=== PATIENT | female | born 1960 | race Caucasian/White ===

== ENCOUNTER 2021-09-17 12:22 | Outpatient (CLI) | payer OTHER | END 2021-09-17 12:23 | disposition home or self-care (01) | LOC: BICMAMMO 12:22 | PROVIDERS: ATTEND Registered Nurse | DX: Z12.31 Encounter for screening mammogram for malignant neoplasm of breast (principal); Z12.2 Encounter for screening for malignant neoplasm of respiratory organs; F17.210 Nicotine dependence, cigarettes, uncomplicated; J84.10 Pulmonary fibrosis, unspecified; I25.10 Atherosclerotic heart disease of native coronary artery without angina pectoris; J92.9 Pleural plaque without asbestos | CPT/HCPCS: 71271; 77063; 77067 ==

== ENCOUNTER 2022-07-10 09:41 | Inpatient (IN) | payer OTHER ==
[2022-07-10] MEDS ORDERED: Ketorolac Tromethamine 30 MG/ML VIAL ONE (11:19)
[2022-07-10] MEDS ORDERED: Metoclopramide HCl 10 MG TAB PO SCH (11:45)
[2022-07-10] MEDS ORDERED: Metoclopramide HCl 10 MG TAB ONE (11:59)
[2022-07-10 12:23] LABS: #Basophils 0.1 thou/uL (0.0-0.2); #Lymphocytes 0.7 thou/uL (1.20-3.40); #Monocytes 0.5 thou/uL (0.11-0.59); #Neutrophils 6.3 thou/uL (1.40-6.50); %Basophils 0.7 % (0.0-1.0); %Eosinophils 0.2 % (0.0-10.0); %Lymphocytes 9.1 % (21.0-51.0); %Monocytes 6.8 % (0.0-10.0); %Neutrophils 83.2 % (42.0-75.0); Mean Corpuscular HGB CONC 35.3 g/dL (32.0-36.0); Mean Corpuscular Hemoglobin 31.5 pg (27.0-31.0); Mean Corpuscular Volume 89.3 fl (78.0-98.0); Mean Platelet Volume 5.9 fL (7.4-10.4); Platelet Count 248 10x3/uL (130-400); RBC Distribution Width 11.8 % (11.5-14.5); Red Blood Cell (RBC) Count 4.13 mill/uL (4.20-5.40); White Blood Cell (WBC) Count 7.5 10x3/uL (4.8-10.8)
[2022-07-10 12:43] LABS: ALT (SGPT) 36 U/L (8-55); AST (SGOT) 58 U/L (5-34); Albumin 4.2 g/dL (3.5-5.0); Alkaline Phosphatase 98 U/L (40-110); Anion Gap 11 mmol/L (10-20); BUN (Urea Nitrogen) 4 mg/dL (9.8-20.1); Bilirubin, Total 0.5 mg/dL (0.2-1.2); Calc. Creatinine Clearance 0 mL/min (70-130); Calcium 8.7 mg/dL (7.8-10.44); Carbon Dioxide 25 mmol/L (22-29); Chloride 80 mmol/L (98-107); Estimated GFR 103; Globulin 2.5 g/dL (2.4-3.5); Glucose 97 mg/dL (70-105); Lipase 7 U/L (8-78); Potassium 4.1 mmol/L (3.5-5.1); Protein, Total 6.7 g/dL (6.0-8.3)
[2022-07-10 12:50] LABS: Sodium 112 mmol/L (136-145)
[2022-07-10 14:03] LABS: Anion Gap 15 mmol/L (10-20); BUN (Urea Nitrogen) 5 mg/dL (9.8-20.1); Calc. Creatinine Clearance 0 mL/min (70-130); Calcium 8.5 mg/dL (7.8-10.44); Carbon Dioxide 23 mmol/L (22-29); Chloride 79 mmol/L (98-107); Estimated GFR 103; Glucose 92 mg/dL (70-105); Potassium 4.2 mmol/L (3.5-5.1)
[2022-07-10 14:09] LABS: Sodium 113 mmol/L (136-145)
[2022-07-10 14:54] LABS: Magnesium 1.4 mg/dL (1.6-2.6)
[2022-07-10] MEDS ORDERED: Ondansetron PF 4 MG/2 ML Vial IVP PRN (15:15)
[2022-07-10] MEDS ORDERED: Sodium Chloride 0.9% 1,000 ML IV SCH (15:15)
[2022-07-10] MEDS ORDERED: Acetaminophen 325 MG TAB PO PRN (15:15)
[2022-07-10] MEDS ORDERED: Ondansetron ODT 4 MG TAB SL PRN (15:15)
[2022-07-10] MEDS ORDERED: HYDROcodone/Acetaminophen 5/325 mg Tablet PO PRN (15:28)
[2022-07-10] MEDS ORDERED: Guaifenesin DM 100-10/5 ML UDCUP PO PRN (15:28)
[2022-07-10] MEDS ORDERED: Magnesium Sulfate In Water 4 GM in Premix Bag 1 BAG IVPB SCH ×2 (15:45→20:00)
[2022-07-10 15:54] LABS: Anion Gap 12 mmol/L (10-20); BUN (Urea Nitrogen) 4 mg/dL (9.8-20.1); Calc. Creatinine Clearance 0 mL/min (70-130); Calcium 8.1 mg/dL (7.8-10.44); Carbon Dioxide 23 mmol/L (22-29); Chloride 89 mmol/L (98-107); Estimated GFR 104; Glucose 95 mg/dL (70-105); Sodium 120 mmol/L (136-145)
[2022-07-10] MEDS ORDERED: Dextrose 5% in Water 1,000 ML IV SCH ×2 (16:45→22:45)
[2022-07-10 16:49] LABS: Sodium 120 mmol/L (136-145)
[2022-07-10] MEDS ORDERED: Electrolyte Replacement Protocol 1 EACH FS SCH (19:45)
[2022-07-10 20:18] VITALS: BMI 25.1
[2022-07-10] MEDS ORDERED: buPROPion 75 MG TAB PO SCH (21:00)
[2022-07-10] MEDS ORDERED: Albuterol 200 PUFF (6.7GM INHALER) INH PRN (21:23)
[2022-07-10] MEDS: Famotidine 20 MG TAB PO SCH (21:38)
[2022-07-10] MEDS: Bupropion 150 MG SR TAB PO SCH (21:38)
[2022-07-10 22:16] LABS: Anion Gap 11 mmol/L (10-20); BUN (Urea Nitrogen) 5 mg/dL (9.8-20.1); Calc. Creatinine Clearance 101 mL/min (70-130); Calcium 8.6 mg/dL (7.8-10.44); Carbon Dioxide 25 mmol/L (22-29); Chloride 91 mmol/L (98-107); Estimated GFR 101; Glucose 129 mg/dL (70-105); Potassium 3.2 mmol/L (3.5-5.1); Sodium 124 mmol/L (136-145)
[2022-07-10] MEDS ORDERED: Potassium Chloride 20 MEQ TAB PO SCH (23:00)
[2022-07-11 02:11] LABS: Sodium 126 mmol/L (136-145)
[2022-07-11 04:37] LABS: #Lymphocytes 0.7 thou/uL (1.20-3.40); #Monocytes 0.6 thou/uL (0.11-0.59); #Neutrophils 4.8 thou/uL (1.40-6.50); %Basophils 0.3 % (0.0-1.0); %Eosinophils 0.5 % (0.0-10.0); %Lymphocytes 12.1 % (21.0-51.0); %Monocytes 9.4 % (0.0-10.0); %Neutrophils 77.7 % (42.0-75.0); Hemoglobin 12.1 g/dL (12.0-16.0); Mean Corpuscular HGB CONC 36.2 g/dL (32.0-36.0); Mean Corpuscular Hemoglobin 32.8 pg (27.0-31.0); Mean Corpuscular Volume 90.8 fl (78.0-98.0); Mean Platelet Volume 6.2 fL (7.4-10.4); Platelet Count 246 10x3/uL (130-400); RBC Distribution Width 11.8 % (11.5-14.5); Red Blood Cell (RBC) Count 3.67 mill/uL (4.20-5.40); White Blood Cell (WBC) Count 6.1 10x3/uL (4.8-10.8)
[2022-07-11] MEDS ORDERED: Dextrose 5% in Water 1,000 ML IV SCH (04:45)
[2022-07-11 05:04] LABS: Anion Gap 14 mmol/L (10-20); BUN (Urea Nitrogen) 7 mg/dL (9.8-20.1); Calc. Creatinine Clearance 108 mL/min (70-130); Calcium 8.1 mg/dL (7.8-10.44); Carbon Dioxide 23 mmol/L (22-29); Chloride 95 mmol/L (98-107); Estimated GFR 103; Glucose 119 mg/dL (70-105); Potassium 4.2 mmol/L (3.5-5.1); Sodium 128 mmol/L (136-145)
[2022-07-11] MEDS: Levothyroxine 150 MCG TAB PO SCH (06:09)
[2022-07-11] MEDS: Dextrose 5% in Water 1,000 ML IV SCH ×2 (07:54→23:51)
[2022-07-11] MEDS: Famotidine 20 MG TAB PO SCH ×2 (09:38→20:54)
[2022-07-11] MEDS: Nicotine 21 MG PATCH TD SCH (09:38)
[2022-07-11] MEDS: Lisinopril 20 MG TAB PO SCH (09:39)
[2022-07-11] MEDS: Bupropion 150 MG SR TAB PO SCH ×2 (09:41→20:59)
[2022-07-11 10:17] LABS: Sodium 125 mmol/L (136-145)
[2022-07-11] MEDS: Ipratropium/Albuterol 3 ML NEB NEB PRN ×2 (11:15→18:38)
[2022-07-11 12:46] LABS: Sodium 126 mmol/L (136-145)
[2022-07-11] MEDS ORDERED: Mometasone 200 MCG/Formoterol 5 MCG 120 PUFF INHALER INH SCH (18:30)
[2022-07-11 19:41] LABS: Anion Gap 12 mmol/L (10-20); BUN (Urea Nitrogen) 5 mg/dL (9.8-20.1); Calc. Creatinine Clearance 97 mL/min (70-130); Calcium 8.6 mg/dL (7.8-10.44); Carbon Dioxide 22 mmol/L (22-29); Chloride 96 mmol/L (98-107); Estimated GFR 100; Glucose 119 mg/dL (70-105); Potassium 4.1 mmol/L (3.5-5.1); Sodium 126 mmol/L (136-145)
[2022-07-11] MEDS ORDERED: Magnesium 2 GM/50 ML(in water) 2 GM in Premix Bag 1 BAG IVPB SCH (21:00)
[2022-07-12] MEDS: Levothyroxine 150 MCG TAB PO SCH (05:12)
[2022-07-12 08:01] VITALS: BP 119/70; TEMP 97.7
[2022-07-12] MEDS: Lisinopril 20 MG TAB PO SCH (08:49)
[2022-07-12] MEDS: Famotidine 20 MG TAB PO SCH (08:49)
[2022-07-12] MEDS: Nicotine 21 MG PATCH TD SCH (08:49)
[2022-07-12] MEDS: Bupropion 150 MG SR TAB PO SCH (08:49)
== END 2022-07-12 09:58 | disposition home or self-care (01) | DRG 645 ==
LOC: ERS 09:41 → CCU 18:19 → 2SW 07-11 23:47
PROVIDERS: ADMIT Hospitalist; ATTEND Internal Medicine
DX: E22.2 Syndrome of inappropriate secretion of antidiuretic hormone (principal); G43.909 Migraine, unspecified, not intractable, without status migrainosus; E03.9 Hypothyroidism, unspecified; I12.9 Hypertensive chronic kidney disease with stage 1 through stage 4 chronic kidney disease, or unspecified chronic kidney disease; N18.1 Chronic kidney disease, stage 1; D63.1 Anemia in chronic kidney disease; E83.42 Hypomagnesemia; J44.9 Chronic obstructive pulmonary disease, unspecified; F17.218 Nicotine dependence, cigarettes, with other nicotine-induced disorders; Z88.0 Allergy status to penicillin; Z79.51 Long term (current) use of inhaled steroids; Z90.49 Acquired absence of other specified parts of digestive tract; Z79.899 Other long term (current) drug therapy; Z79.890 Hormone replacement therapy
CPT/HCPCS: 36415; 70450; 70551; 71045; 80048; 80053; 83690; 83735; 84443; 85025; 94640; J1650; J1885; J3475; J7070; J7620

== ENCOUNTER 2024-02-18 08:57 | Inpatient (IN) | payer BC ==
[2024-02-18] MEDS ORDERED: Ipratropium/Albuterol 3 ML NEB NEB PRN (13:00)
[2024-02-18] MEDS ORDERED: Acetaminophen 500 MG TAB PO PRN (22:31)
[2024-02-18] MEDS ORDERED: Promethazine 25 MG TAB PO PRN (22:31)
[2024-02-18] MEDS ORDERED: Benzonatate 100 MG CAP PO PRN (22:32)
[2024-02-18] MEDS ORDERED: cloNIDine 0.1 MG TAB PO PRN (22:32)
[2024-02-18] MEDS ORDERED: Bisacodyl 5 MG TAB PO PRN (22:33)
[2024-02-19] MEDS: Sodium Chloride 3% 100 ML IVPB SCH (00:15)
[2024-02-19] MEDS: Nicotine 21 MG PATCH TOP SCH (00:16)
[2024-02-19] MEDS: methylPREDNISolone Sod Succ 40 MG VIAL IVP SCH (00:16)
[2024-02-19] MEDS: Ipratropium/Albuterol 3 ML NEB NEB SCH ×2 (00:16→07:28)
[2024-02-19 01:10] LABS: Anion Gap 14 mmol/L (10-20); BUN (Urea Nitrogen) 7 mg/dL (9.8-20.1); Calc. Creatinine Clearance 125 mL/min (70-130); Calcium 8.2 mg/dL (7.8-10.44); Carbon Dioxide 24 mmol/L (23-31); Chloride 90 mmol/L (98-107); Estimated GFR 102; Glucose 116 mg/dL (80-115); Potassium 3.9 mmol/L (3.5-5.1); Sodium 124 mmol/L (136-145)
[2024-02-19 05:24] LABS: Legionella Urinary Ag Negative (Negative)
[2024-02-19 05:42] LABS: Anion Gap 13 mmol/L (10-20); BUN (Urea Nitrogen) 7 mg/dL (9.8-20.1); Calc. Creatinine Clearance 130 mL/min (70-130); Carbon Dioxide 26 mmol/L (23-31); Chloride 95 mmol/L (98-107); Estimated GFR 102; Glucose 101 mg/dL (80-115); Potassium 3.6 mmol/L (3.5-5.1); Sodium 130 mmol/L (136-145)
[2024-02-19] MEDS: Mometasone 200 MCG/Formoterol 5 MCG 120 PUFF INHALER INH SCH (07:31)
[2024-02-19 08:58] LABS: Anion Gap 13 mmol/L (10-20); BUN (Urea Nitrogen) 7 mg/dL (9.8-20.1); Calc. Creatinine Clearance 120 mL/min (70-130); Calcium 8.6 mg/dL (7.8-10.44); Carbon Dioxide 24 mmol/L (23-31); Chloride 97 mmol/L (98-107); Estimated GFR 101; Glucose 107 mg/dL (80-115); Potassium 3.9 mmol/L (3.5-5.1); Sodium 130 mmol/L (136-145)
[2024-02-19] MEDS: Enoxaparin 40 MG (0.4 mL) SYRINGE SC SCH (09:13)
[2024-02-19] MEDS: Azithromycin 500 MG in Sodium Chloride 0.9% 250 ML 250 ML IVPB SCH (09:13)
[2024-02-19] MEDS: cefTRIAXone\\ROCEPHIN 1 GM in Sodium Chloride 0.9% 100 ML IVPB SCH (09:13)
[2024-02-19 11:22] LABS: ALT (SGPT) 25 U/L (8-55); AST (SGOT) 23 U/L (5-34); Albumin 3.6 g/dL (3.4-4.8); Alkaline Phosphatase 103 U/L (40-110); Anion Gap 15 mmol/L (10-20); BUN (Urea Nitrogen) 7 mg/dL (9.8-20.1); Bilirubin, Total 0.5 mg/dL (0.2-1.2); Calc. Creatinine Clearance 128 mL/min (70-130); Calcium 8.1 mg/dL (7.8-10.44); Carbon Dioxide 22 mmol/L (23-31); Chloride 83 mmol/L (98-107); Estimated GFR 102; Globulin 2.9 g/dL (2.4-3.5); Glucose 111 mg/dL (80-115); Potassium 3.6 mmol/L (3.5-5.1); Protein, Total 6.5 g/dL (5.8-8.1); Sodium 116 mmol/L (136-145)
[2024-02-19 11:25] LABS: Troponin I Less than 0.010 ng/mL (< 0.028)
[2024-02-19 11:26] LABS: Lactic Acid 1.09 mmol/L (0.5-2.2)
[2024-02-19 14:25] LABS: #Basophils Less than 0.03 10x3/uL (0.0-0.2); #Eosinophils Less than 0.03 10x3/uL (0.0-0.7); %Basophils 0.3 % (0.0-1.0); %Eosinophils 0.3 % (0.0-10.0); %Lymphocytes 17.3 % (21.0-51.0); %Monocytes 10.7 % (0.0-10.0); %Neutrophils 70.9 % (42.0-75.0); Hematocrit 35.3 % (36.0-47.0); Hemoglobin 13.1 g/dL (12.0-16.0); Mean Corpuscular HGB CONC 37.1 g/dL (32.0-36.0); Mean Corpuscular Hemoglobin 30.5 pg (27.0-31.0); Mean Corpuscular Volume 82.3 fL (78.0-98.0); Mean Platelet Volume 8.6 fL (7.4-10.4); Platelet Count 242 10x3/uL (130-400); RBC Distribution Width 12.1 % (11.5-14.5); Red Blood Cell (RBC) Count 4.29 mill/uL (4.20-5.40)
[2024-02-19 16:54] LABS: Anion Gap 15 mmol/L (10-20); BUN (Urea Nitrogen) 9 mg/dL (9.8-20.1); Calc. Creatinine Clearance 105 mL/min (70-130); Calcium 8.2 mg/dL (7.8-10.44); Carbon Dioxide 22 mmol/L (23-31); Chloride 98 mmol/L (98-107); Estimated GFR 95; Glucose 147 mg/dL (80-115); Potassium 3.7 mmol/L (3.5-5.1); Sodium 131 mmol/L (136-145)
[2024-02-19] MEDS: Desmopressin Acetate 4 mcg/ml AMPUL IVP SCH (19:24)
[2024-02-19] MEDS: Dextrose 5% in Water 1,000 ML IV SCH (19:25)
[2024-02-19] MEDS: traZODone HCl 50 MG TAB PO SCH (22:30)
[2024-02-20 05:50] LABS: Anion Gap 16 mmol/L (10-20); BUN (Urea Nitrogen) 9 mg/dL (9.8-20.1); Calc. Creatinine Clearance 124 mL/min (70-130); Calcium 7.8 mg/dL (7.8-10.44); Carbon Dioxide 24 mmol/L (23-31); Chloride 89 mmol/L (98-107); Estimated GFR 102; Glucose 133 mg/dL (80-115); Potassium 3.9 mmol/L (3.5-5.1); Sodium 125 mmol/L (136-145)
[2024-02-20] MEDS: Levothyroxine Sodium 25 MCG TAB PO SCH (06:20)
[2024-02-20] MEDS: Levothyroxine Sodium 112 MCG TAB PO SCH (06:20)
[2024-02-20] MEDS: methylPREDNISolone Sod Succ 40 MG VIAL IVP SCH (20:09)
[2024-02-21 09:13] LABS: Anion Gap 13 mmol/L (10-20); BUN (Urea Nitrogen) 9 mg/dL (9.8-20.1); Calc. Creatinine Clearance 116 mL/min (70-130); Calcium 8.2 mg/dL (7.8-10.44); Carbon Dioxide 27 mmol/L (23-31); Chloride 95 mmol/L (98-107); Estimated GFR 100; Glucose 136 mg/dL (80-115); Potassium 3.1 mmol/L (3.5-5.1); Sodium 132 mmol/L (136-145)
[2024-02-21] MEDS: Lisinopril 10 MG TAB PO SCH (09:53)
[2024-02-21] MEDS: Cefdinir 300 MG CAP PO SCH (09:56)
[2024-02-21] MEDS: Potassium Bicarbonate/Cit Ac 20 MEQ TAB PO SCH (12:59)
[2024-02-21] MEDS ORDERED: Electrolyte Replacement Protocol 1 EACH FS SCH (14:00)
[2024-02-21] MEDS ORDERED: Electrolyte Replacement Protocol FS PRN (14:30)
[2024-02-21] MEDS: Potassium Chloride 20 MEQ TAB PO SCH (15:20)
[2024-02-22 06:20] LABS: Anion Gap 11 mmol/L (10-20); BUN (Urea Nitrogen) 9 mg/dL (9.8-20.1); Calc. Creatinine Clearance 114 mL/min (70-130); Calcium 8.2 mg/dL (7.8-10.44); Carbon Dioxide 29 mmol/L (23-31); Chloride 96 mmol/L (98-107); Estimated GFR 100; Glucose 134 mg/dL (80-115); Potassium 4.3 mmol/L (3.5-5.1); Sodium 132 mmol/L (136-145)
[2024-02-22 08:26] VITALS: BP 143/88
[2024-02-22] MEDS: predniSONE 20 MG TAB PO SCH (08:32)
[2024-02-22] MEDS: Albuterol 2.5 MG (3 mL) NEB NEB PRN (10:56)
[2024-02-22] MEDS: guaiFENesin ER 600 MG TAB PO SCH (11:40)
[2024-02-22 11:59] VITALS: TEMP 97.7
[2024-02-22 12:28] LABS: Clarity Clear (Clear); Leukocyte Negative Leu/uL (Negative); Nitrite Negative (Negative)
[2024-02-22 12:29] LABS: Bilirubin Negative (Negative); Blood, Urine Negative (Negative); Glucose, Urine (Dipstick) Normal (Negative); Ketone, Urine Negative (Negative); Protein, Urine (Dipstick) Negative (Neg-Trace); RBC/HPF None Seen HPF (0-3); Urobilinogen Normal mg/dL (Less than 2); WBC/HPF 0-3 HPF (0-3)
== END 2024-02-22 16:06 | disposition home or self-care (01) | DRG 177 ==
LOC: ERS 08:57 → IMCU/EMU 12:16 → SURG A 15:26
PROVIDERS: ADMIT Internal Medicine; ATTEND Family Medicine
DX: J15.69 Pneumonia due to other Gram-negative bacteria (principal); J96.01 Acute respiratory failure with hypoxia; J44.1 Chronic obstructive pulmonary disease with (acute) exacerbation; E22.2 Syndrome of inappropriate secretion of antidiuretic hormone; E87.20 Acidosis, unspecified; F17.210 Nicotine dependence, cigarettes, uncomplicated; I10 Essential (primary) hypertension; E78.5 Hyperlipidemia, unspecified; E03.9 Hypothyroidism, unspecified; E87.6 Hypokalemia; Z88.0 Allergy status to penicillin; Z79.899 Other long term (current) drug therapy; Z90.89 Acquired absence of other organs
CPT/HCPCS: 36415; 71045; 80048; 81001; 83605; 83880; 83930; 83935; 84300; 84443; 84484; 85025; 87040; 87070; 87205; 87400; 87426; 87899; 93005; 96365; 96366; 96367; 96368; 96375; J0456; J0696; J1650; J2597; J2919; J7050; J7070; J7512; J7611; J7620